=== PATIENT | male | born 1990 | race Caucasian/White ===

== ENCOUNTER → 2018-08-31 13:00 | Outpatient (CLI) | payer OTHER, SELFPAY | DX: Z23 Encounter for immunization (principal) | CPT/HCPCS: 90471; 90686 ==

== ENCOUNTER 2019-06-15 13:26 | Emergency (ER) | payer OTHER, SELFPAY ==
[2019-06-15 13:39] VITALS: BP 151/90; PULSE 66; RESP 14; TEMP 36.4; O2SAT 99
--- NOTE | 2019-06-15 13:43 | PC.NURSE ---
<1cm superficial lac to lt dorsal hand from used instrument in OR. 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 No bleeding present.
--- NOTE | 2019-06-15 13:48 | ED.RECABL ---
HPI - Recheck/Abnormal Lab/Rx General Chief Complaint: Blood/Body fluid exposure Stated Complaint: LEFT HAND THUMB SMALL LACERATION Time Seen by Provider: 06/15/19 13:33 Source: patient Mode of arrival: ambulatory Limitations: no limitations History of Present Illness HPI narrative: Patient is a 29-year-old fully immunized male who presents with left thumb injury. At work scraped his skin with a bloody drill. Related Data Home Medications Medication Instructions Recorded Confirmed No Known Home Medications 06/15/19 06/15/19 Allergies Allergy/AdvReac Type Severity Reaction Status Date / Time No Known Drug Allergies Allergy Verified 06/15/19 13:42 Review of Systems Review of Systems GENERAL: Denies chills,fever HEENT: Denies throat pain RESPIRATORY: Denies dyspnea, cough, wheezing CARDIOVASCULAR: Denies chest pain, palpitations GASTROINTESTINAL: Denies nausea, vomiting MUSCULOSKELETAL: Denies extremity pain, injury SKIN: See HPI NEUROLOGIC: Denies weakness, dizziness, headache, numbness 8 point review of systems is negative except for those stated above and HPI [facility] Medical History Immunizations reviewed and up to date (Acute) Social History (Updated 06/15/19 @ 18:12 by Claudette Aguilera DO) marital status: household members: spouse lives independently: Yes Social History marital status: household members: spouse lives independently: Yes Exam Initial Vital Signs Initial Vital Signs: Vital Signs Temperature 97.5 F L 06/15/19 13:39 Pulse Rate 66 06/15/19 13:39 Respiratory Rate 14 06/15/19 13:39 Blood Pressure 151/90 H 06/15/19 13:39 Pulse Oximetry 99 06/15/19 13:39 GENERAL: Well-appearing, well-nourished and in no acute distress. CARDIOVASCULAR: peripheral pulses in tact, cap refill <2 sec RESPIRATORY: No respiratory distress, speaks in full sentences without difficulty EXTREMITIES: Normal range of motion, no clubbing or edema. Neurovascularly intact NEUROLOGICAL: Cranial nerves II through XII grossly intact. Normal gait and speech. SKIN: Left thumb superficial scrape, no actual bleeding Course Vital Signs - 8 hr 06/15/19 13:39 Temperature 97.5 F L Pulse Rate 66 Respiratory Rate 14 Blood Pressure 151/90 H Pulse Oximetry 99 MDM - Recheck/Abnormal Lab/Rx Lab Data Attestation: I reviewed the patient's lab results. Lab Results 06/15/19 06/15/19 Range/Units 13:47 13:57 ALT 21 (21-72) IU/L Hep Bs Antigen Negative (NEGATIVE) s/c Hepatitis C Antibody Negative (NEGATIVE) s/c HIV 1&2 Ab/P24 Ag 4thGn Negative (NEGATIVE) Discharge Plan Departure Patient Disposition: Home Clinical Impression: Abrasion of skin, Employee exposure to body fluids Discharge Date/Time: 06/15/19 14:28 Interventions: ED Discharge Assessment Last Done: 06/15/19 14:27 Instructions: DI for Accidental Exposure to Body Fluids Activity Restrictions/Additional Instructions: *You have been diagnosed with body fluid exposure *What to do: Do not be dumb and play with blood *Continue to take medications as directed *Follow up with your primary care provider in 2-3 days *Return to ER if you should have any new, worsening or concerning symptoms Prescriptions: No Action No Known Home Medications RF: 0
[2019-06-15 14:33] LABS: Alanine Aminotransferase 21 IU/L (21-72)
[2019-06-15 15:48] LABS: Hepatitis B Surface Antigen NEGATIVE s/c (NEGATIVE)
[2019-06-15 16:03] LABS: HIV 1 & 2 Ab/Ag 4th Gen Combo NEGATIVE (NEGATIVE); Hep C Virus Ab w/Reflex Quant NEGATIVE s/c (NEGATIVE)
== END 2019-06-15 14:28 | disposition home or self-care (01) ==
PROVIDERS: Emergency Provider Emergency Medicine
DX: S61.012A Laceration without foreign body of left thumb without damage to nail, initial encounter (principal); W29.8XXA Contact with other powered hand tools and household machinery, initial encounter; Y99.0 Civilian activity done for income or pay; Z57.8 Occupational exposure to other risk factors
CPT/HCPCS: 99282

== ENCOUNTER → 2019-07-20 13:14 | Outpatient (CLI) | payer OTHER, SELFPAY | DX: Z23 Encounter for immunization (principal) | CPT/HCPCS: 90471; 90686 ==

== ENCOUNTER → 2020-08-08 13:30 | Outpatient (CLI) | payer OTHER, SELFPAY ==
[2020-08-09 06:50] LABS: COVID19 Sendout Not Detected (Not Detect)
== END ==
PROVIDERS: Visit Provider Physician Assistant
DX: Z03.818 Encounter for observation for suspected exposure to other biological agents ruled out (principal)
CPT/HCPCS: 87635

== ENCOUNTER → 2020-08-30 | Outpatient (CLI) | payer OTHER, SELFPAY | PROVIDERS: Referring Provider Internal Medicine; Visit Provider Internal Medicine | DX: Z23 Encounter for immunization (principal) | CPT/HCPCS: 90471; 90686 ==

== ENCOUNTER → 2020-11-02 10:14 | Outpatient (CLI) | payer OTHER, SELFPAY ==
[2020-11-02] MEDS: COVID-19 VACC(MODERNA-1)/PF 100 MCG/0.5 ML VIAL IM (10:18)
== END ==
PROVIDERS: Visit Provider Internal Medicine
DX: Z23 Encounter for immunization (principal)
CPT/HCPCS: 0011A; 91301

== ENCOUNTER → 2020-11-29 10:10 | Outpatient (CLI) | payer OTHER, SELFPAY ==
[2020-11-29] MEDS: COVID-19 VACC #2, MRNA(MOD) 100 MCG/0.5 ML VIAL IM (10:15)
== END ==
PROVIDERS: Visit Provider Internal Medicine
DX: Z23 Encounter for immunization (principal)
CPT/HCPCS: 0012A; 91301

== ENCOUNTER → 2021-10-10 16:42 | Outpatient (CLI) | payer BC, SELFPAY ==
[2021-10-11 16:19] LABS: Prostate Specific Antigen Scrn 0.744 ng/mL (0.1-4.0)
== END ==
PROVIDERS: Referring Provider Family Medicine; Visit Provider Family Medicine
DX: R35.0 Frequency of micturition (principal)
CPT/HCPCS: 36415; 84153; G0103

== ENCOUNTER → 2021-10-30 12:13 | Outpatient (CLI) | payer OTHER, SELFPAY ==
[2021-10-30 13:14] LABS: COVID19 -Nasal RAPID POSITIVE (Negative)
== END ==
PROVIDERS: Visit Provider Nurse Practitioner Family
DX: J02.9 Acute pharyngitis, unspecified (principal); R09.81 Nasal congestion
CPT/HCPCS: 87635

== ENCOUNTER → 2022-10-10 13:22 | Outpatient (CLI) | payer OTHER, SELFPAY ==
[2022-10-10 15:17] LABS: Influenza A - CEPHEID Flu A NEGATIVE (NEGATIVE); Influenza B - CEPHEID Flu B NEGATIVE (NEGATIVE); Respiratory Syncytial Virus Negative (Negative)
[2022-10-10 15:23] LABS: COVID-19 CEPHEID 4-PLEX PCR Negative (Negative)
== END ==
PROVIDERS: Visit Provider Nurse Practitioner Family
DX: J06.9 Acute upper respiratory infection, unspecified (principal); J02.9 Acute pharyngitis, unspecified; Z20.822 Contact with and (suspected) exposure to COVID-19
CPT/HCPCS: 0241U; 87070

== ENCOUNTER → 2023-08-21 14:52 | Outpatient (CLI) | payer OTHER, SELFPAY | PROVIDERS: Referring Provider Family Medicine; Visit Provider Family Medicine | DX: Z23 Encounter for immunization (principal) | CPT/HCPCS: 90471; 90686 ==

== ENCOUNTER → 2024-08-20 15:34 | Outpatient (CLI) | payer OTHER, SELFPAY | PROVIDERS: Referring Provider Internal Medicine; Visit Provider Internal Medicine | DX: Z23 Encounter for immunization (principal) | CPT/HCPCS: 90471; 90656 ==